=== PATIENT | female | born 2000 | race Caucasian/White ===

== ENCOUNTER 2019-01-22 00:55 | Emergency (ER) | payer OTHER ==
--- NOTE | 2019-01-22 01:18 | PDOC ---
*Physical Exam - Vital Signs Last Vital Signs Temp Pulse Resp BP Pulse Ox 97.5 F L 96 H 18 115/70 99 01/22/19 00:55 01/22/19 00:55 01/22/19 00:55 01/22/19 00:55 01/22/19 00:55 ED Treatment Course - LABORATORY CBC & Chemistry Diagram: 01/22/19 02:12 01/22/19 02:12 Medical Decision Making - Medical Decision Making 01/22/19 01:18 Patient seen by the advanced practice provider under my direct supervision. Ancillary testing reviewed as necessary. I agree with plan as outlined by the advanced practice provider. *DC/Admit/Observation/Transfer Diagnosis at time of Disposition: Abdominal pain Qualifiers: Abdominal location: left upper quadrant Qualified Code(s): R10.12 - Left upper quadrant pain - Discharge Dispostion Disposition: HOME Condition at time of disposition: Fair - Referrals Referrals: Cezar Pride DO [Staff Physician] - - Patient Instructions Additional Instructions: Her ultrasound and CAT scan were normal. Laboratory testing is unremarkable. Take Tylenol or Motrin as needed for fevers and/or pain. Follow manufacture's instructions for appropriate dosage. Return to the emergency department for any new or worsening symptoms. Your emergency department visit is not completed see follow-up with her primary doctor. Thank you very much for choosing us provider emergent health care needs. - Post Discharge Activity
[2019-01-22] MEDS ORDERED: morphine CARPU-JECT 4 MG/1 ML DISP.SYRIN IVPUSH ONE (01:21)
[2019-01-22] MEDS ORDERED: SODIUM CHLORIDE 1,000 ML IV STA (01:21)
[2019-01-22] MEDS ORDERED: ONDANSETRON 4 MG/2 ML VIAL IVPUSH ONE (01:21)
--- NOTE | 2019-01-22 01:27 | PDOC ---
History of Present Illness - General Chief Complaint: Pain, Acute Stated Complaint: STOMACH PAIN Time Seen by Provider: 01/22/19 01:17 History Source: Patient Exam Limitations: No Limitations - History of Present Illness Travel History: No Initial Comments: 01/22/19 01:23 HISTORY OF PRESENT ILLNESS: The 18-year-old woman who denies medical history presents emergency department for evaluation of sudden onset sharp epigastric pain starting approximately one hour ago. Patient rates the pain 10/10. Patient reports trying to take omeprazole prior to ER visit but had 1 episode of nonbloody nonbilious emesis and noted the pills in the vomit. Patient reports she had tacos for dinner but had no pain or discomfort after eating. Patient denies any dysuria or hematuria, rectal bleeding, diarrhea or constipation. No recent travel or sick contacts. PAST MEDICAL HISTORY: Denies past medical history SURGICAL HISTORY: Denies ALLERGIES: No known drug allergies REVIEW OF SYSTEMS General/Constitutional: Denies fever or chills. Denies weakness, weight change. HEENT: Denies change in vision. Denies ear pain or discharge. Denies sore throat. Cardiovascular: Denies chest pain or shortness of breath. Respiratory: Denies cough, wheezing, or hemoptysis. Gastrointestinal: see HPI Genitourinary: Denies dysuria, frequency, or change in urination. Musculoskeletal: Denies joint or muscle swelling or pain. Denies neck or back pain. Skin and breasts: Denies rash or easy bruising. Neurologic: Denies headache, vertigo, loss of consciousness, or loss of sensation. Psychiatric: Denies depression or anxiety. Endocrine: Denies increased thirst. Denies abnormal weight change. Hematologic/Lymphatic: Denies anemia, easy bleeding, or history of blood clots. Allergic/Immunologic: Denies hives or skin allergy. Denies latex allergy. PHYSICAL EXAM General Appearance: Well-appearing, appropriately dressed. No apparent distress , no intoxication. Respiratory/Chest: Lungs CTAB. No shortness of breath, chest tenderness, respiratory distress, accessory muscle use. No crackles, rales, rhonchi, stridor , wheezing, dullness Cardiovascular: RRR. S1, S2. No JVD, murmur, bradycardia, tachycardia. Gastrointestinal/Abdominal: Normal bowel sounds. Abdomen soft, non-distended. Diffuse tenderness with guarding worse in the epigastrium and left upper quadrant. No rebound tenderness. No organomegaly, pulsatile mass, hernia, hepatomegaly, splenomegaly. Lymphatic: No adenopathy, tenderness. Integumentary: Appropriate color, dry, warm. No cyanosis, erythema, jaundice or rash Past History - Past Medical History Allergies/Adverse Reactions: Allergies Allergy/AdvReac Type Severity Reaction Status Date / Time No Known Allergies Allergy Verified 01/22/19 01:17 Home Medications: Ambulatory Orders NK [No Known Home Medication] 01/22/19 - Suicide/Smoking/Psychosocial Hx Smoking History: Never smoked Have you smoked in the past 12 months: No Information on smoking cessation initiated: No Hx Alcohol Use: No Drug/Substance Use Hx: No *Physical Exam - Vital Signs Last Vital Signs Temp Pulse Resp BP Pulse Ox 97.5 F L 96 H 18 115/70 99 01/22/19 00:55 01/22/19 00:55 01/22/19 00:55 01/22/19 00:55 01/22/19 00:55 ED Treatment Course - LABORATORY CBC & Chemistry Diagram: 01/22/19 02:12 01/22/19 02:12 - RADIOLOGY Radiology Studies Ordered: Category Date Time Status GALLBLADDER US [US] Stat Ultrasound 01/22/19 01:23 Ordered Medical Decision Making - Medical Decision Making 01/22/19 01:26 A/P: 18-year-old woman with epigastric pain 1 hour prior to arrival Lungs clear to auscultation bilaterally. RRR. No murmur, rub or gallop noted. Abdomen soft nondistended Diffusely tender with worse tenderness in the epigastrium No CVA tenderness noted No suprapubic tenderness Labs Urine Gallbladder ultrasound Normal saline 1 L bolus Morphine 4 mg IV Zofran 4 mg IV Reassess 01/22/19 02:43 Ultrasound as read by imaging cardiac monitor: Liver mildly fatty without mass or biliary duct dilatation. The gallbladder is normal. The CBD is not dilated measures 4 mm in diameter. Right kidney measures 9 cm in length and is unremarkable. Visualized aorta and IVC are normal. Pancreas is partially obscured but appears normal. Given tenderness I will get a CT scan with IV contrast EKG is sinus rhythm with rate of 82. Normal intervals present. Normal axis. No ischemic changes present. 01/22/19 04:44 CT of the abdomen and pelvis as read by imaging cardiac monitor: Lung bases are clear. The visualized cardiac chambers are normal size and configuration. Normal liver , gallbladder, factors, spleen, adrenal glands and kidneys. Stomach and abdominal small and large bowel are normal. There is no aortic aneurysm. There is no significant retroperitoneal lymphadenopathy. The pelvic small large bowel are normal. Appendix is normal. Uterus and adnexal structures are normal. Urinary bladder is unremarkable. There is no pelvic free fluid. No discrete pelvic lymphadenopathy is identified. Given normal exam I will give the patient Toradol 30 mg IV and I will discharge the patient home. I discussed the physical exam findings, ancillary test results and final diagnoses with the patient. I answered all of the patient's questions. The patient was satisfied with the care received and felt comfortable with the discharge plan and treatment plan. The patient will call their primary care physician within 24 hours to arrange follow-up and will return to the Emergency Department with any new, persistent or worsening symptoms. *DC/Admit/Observation/Transfer Diagnosis at time of Disposition: Abdominal pain Qualifiers: Abdominal location: left upper quadrant Qualified Code(s): R10.12 - Left upper quadrant pain - Discharge Dispostion Disposition: HOME Condition at time of disposition: Fair Decision to Admit order: No - Referrals Referrals: Cezar Pride DO [Staff Physician] - - Patient Instructions Additional Instructions: Her ultrasound and CAT scan were normal. Laboratory testing is unremarkable. Take Tylenol or Motrin as needed for fevers and/or pain. Follow manufacture's instructions for appropriate dosage. Return to the emergency department for any new or worsening symptoms. Your emergency department visit is not completed see follow-up with her primary doctor. Thank you very much for choosing us provider emergent health care needs. - Post Discharge Activity
[2019-01-22 01:29] VITALS: TEMP 97.5; BMI 34.1
[2019-01-22] MEDS ORDERED: morphine SULFATE 4 MG/ML VIAL ONE (01:35)
[2019-01-22] MEDS ORDERED: ONDANSETRON 4 MG/2 ML VIAL ONE (01:35)
[2019-01-22 02:40] LABS: BASO % 0.3 % (0-2.0); EOS % 0.2 % (0-4.5); HEMATOCRIT 38.2 % (32.4-45.2); HEMOGLOBIN 12.3 GM/dL (10.7-15.3); LYMPH % 14.3 % (8-40); MCH 26.8 pg (25.7-33.7); MCHC 32.3 g/dl (32.0-36.0); MEAN CELL VOLUME 83.1 fl (80-96); MEAN PLT VOLUME 8.1 fl (7.5-11.1); MONO % 7.9 % (3.8-10.2); NEUT % 77.3 % (42.8-82.8); PLATELET COUNT 440 K/MM3 (134-434); RDW 15.2 % (11.6-15.6); WHITE BLOOD COUNT 12.3 K/mm3 (4.0-10.0)
[2019-01-22 02:43] LABS: ALBUMIN 4.3 g/dl (3.4-5.0); ALK PHOS 80 U/L (45-117); ANION GAP 9 MMOL/L (8-16); BILIRUBIN,TOTAL 0.2 mg/dL (0.2-1); BLOOD UREA NITROGEN 15 mg/dL (7-18); CALCIUM 9.4 mg/dL (8.5-10.1); CHLORIDE 103 mmol/L (98-107); CO2 26 mmol/L (21-32); CREATININE 0.8 mg/dL (0.55-1.3); GLUCOSE,RANDOM 100 mg/dL (74-106); LIPASE 126 U/L (73-393); POTASSIUM 4.1 mmol/L (3.5-5.1); SGOT/AST 14 U/L (15-37); SGPT/ALT 23 U/L (13-61); SODIUM 138 mmol/L (136-145); TOT PROT 8.4 g/dl (6.4-8.2)
[2019-01-22] MEDS ORDERED: KETOROLAC TROMETHAMINE 30 MG/1 ML VIAL IVPUSH ONE (04:44)
[2019-01-22] MEDS ORDERED: KETOROLAC TROMETHAMINE 30 MG/1 ML VIAL ONE (04:47)
[2019-01-22] MEDS ORDERED: MAG HYDROX/AL HYDROX/SIMETH -MYLANTA- ORAL SUSPENSION PO ONE (04:51)
[2019-01-22] MEDS ORDERED: MAG HYDROX/AL HYDROX/SIMETH 30 ML UNIT-DOSE CUP ONE (04:52)
[2019-01-22 05:10] LABS: HCG,QUALITATIVE URINE Negative
[2019-01-22 05:21] LABS: URINE APPEARANCE CLEAR; URINE BILIRUBIN NEGATIVE (NEGATIVE); URINE COLOR YELLOW; URINE GLUCOSE (UA) NEGATIVE (NEGATIVE); URINE KETONE TRACE (NEGATIVE); URINE LEUK ESTERASE NEGATIVE (NEGATIVE); URINE NITRITE NEGATIVE (NEGATIVE); URINE PROTEIN NEGATIVE (NEGATIVE); URINE UROBILINOGEN 0.2 mg/dL (0.2-1.0)
[2019-01-22 05:29] VITALS: BP 121/83; PULSE 84
--- NOTE | 2019-01-22 09:58 | EKG ---
Test Reason : Blood Pressure : / mmHG Vent. Rate : 082 BPM Atrial Rate : 082 BPM P-R Int : 128 ms QRS Dur : 100 ms QT Int : 392 ms P-R-T Axes : 032 050 035 degrees QTc Int : 457 ms NORMAL SINUS RHYTHM NORMAL ECG NO PREVIOUS ECGS AVAILABLE Confirmed by MD DAVID, INGRIS ([id number]) on 01/22/2019 9:57:56 AM Referred By: Confirmed By:INGRIS HERNANDEZ MD
== END 2019-01-22 05:30 | disposition home or self-care (01) ==
LOC: JER 00:55
PROC: 3E033NZ Introduction of Analgesics, Hypnotics, Sedatives into Peripheral Vein, Percutaneous Approach (ICD-10-PCS; principal; 2019-01-22)
PROC: 3E0333Z Introduction of Anti-inflammatory into Peripheral Vein, Percutaneous Approach (ICD-10-PCS; 2019-01-22)
PROC: 3E033GC Introduction of Other Therapeutic Substance into Peripheral Vein, Percutaneous Approach (ICD-10-PCS; 2019-01-22)
DX: R10.12 Left upper quadrant pain (principal)
CPT/HCPCS: 36415; 74177-TC; 76705-TC; 80053; 81003; 82550; 83605; 83690; 84484; 84703; 85025; 87086; 93005; 93010; 96374; 96375; 99283-25; J7030

== ENCOUNTER 2019-02-05 09:16 | Day surgery (SDC) | payer OTHER | END 2019-02-05 12:41 | disposition home or self-care (01) | LOC: JASU-ENDO 09:16 ==